=== PATIENT | female | born 1980 | race African-American/Black ===

== ENCOUNTER 2020-12-31 08:43 | Emergency (ER) | payer OTHER ==
[2020-12-31 08:47] VITALS: BP 137/93; PULSE 91; TEMP 98.2; BMI 32.3
[2020-12-31] MEDS ORDERED: KETOROLAC TROMETHAMINE 30 MG/1 ML VIAL IM ONE (09:38)
[2020-12-31] MEDS ORDERED: KETOROLAC TROMETHAMINE 30 MG/1 ML VIAL ONE (11:16)
== END 2020-12-31 11:55 | disposition home or self-care (01) ==
LOC: JER 08:43 → JERFT 08:43
PROC: 3E0233Z Introduction of Anti-inflammatory into Muscle, Percutaneous Approach (ICD-10-PCS; principal; 2020-12-31)
DX: S96.912A Strain of unspecified muscle and tendon at ankle and foot level, left foot, initial encounter (principal)
CPT/HCPCS: 71046-TC-FY; 73610-TC-LT-FY; 73630-TC-LT; 96372; 99284-25